=== PATIENT | female | born 1960 | race Caucasian/White ===

== ENCOUNTER 2025-03-28 10:41 | Emergency (ER) | payer MEDICAID, SELFPAY ==
[2025-03-28 11:09] VITALS: BP 133/80; PULSE 68; RESP 18; TEMP 37; O2SAT 97
[2025-03-28] MEDS: LIDOCAINE HCL 1% 20 ML VIAL 10 ML INFL (12:19)
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
== END 2025-03-28 13:53 | disposition home or self-care (01) ==
PROVIDERS: Emergency Provider Emergency Medicine; PCP Family Medicine
DX: S01.511A Laceration without foreign body of lip, initial encounter (principal); W50.0XXA Accidental hit or strike by another person, initial encounter
CPT/HCPCS: 12013; 99282; J3490; A9270

== ENCOUNTER → 2025-05-12 | Outpatient (CLI) | payer OTHER, SELFPAY ==
--- NOTE | 2025-05-12 | XR_ITS ---
Examination: Bilateral hips, AP pelvis, 5 views Technique: AP, lateral views both hips, AP pelvis, 5 views Exam date and time: May 12, 2025, 1500 hours, comparison September 06, 2023 INDICATIONS: Left hip pain beginning 2 weeks ago. FINDINGS: Moderate osteopenia Advanced left hip osteoarthritis Moderate right hip osteoarthritis No hip or pelvic fracture Bilateral greater trochanteric bursitis hips IMPRESSION: Advanced left hip osteoarthritis
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
== END | disposition home or self-care (01) ==
LOC: SMRI 14:14
PROVIDERS: Referring Provider Orthopaedic Surgery; Visit Provider Orthopaedic Surgery
DX: M51.370 Other intervertebral disc degeneration, lumbosacral region with discogenic back pain only (principal); M51.360 Other intervertebral disc degeneration, lumbar region with discogenic back pain only; M51.26 Other intervertebral disc displacement, lumbar region; M16.12 Unilateral primary osteoarthritis, left hip
CPT/HCPCS: 72148; 73522